=== PATIENT | male | born 1985 | race American Indian/Alaskan Native ===

== ENCOUNTER 2016-07-20 14:20 | Emergency (ER) | payer OTHER ==
[2016-07-20 20:45] VITALS: BP 141/89
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
== END 2016-07-21 00:14 | disposition home or self-care (01) ==
LOC: ED 14:20
DX: S39.012A Strain of muscle, fascia and tendon of lower back, initial encounter (principal); S16.1XXA Strain of muscle, fascia and tendon at neck level, initial encounter; V89.2XXA Person injured in unspecified motor-vehicle accident, traffic, initial encounter; Y92.488 Other paved roadways as the place of occurrence of the external cause; Y93.89 Activity, other specified; Y99.8 Other external cause status
CPT/HCPCS: 72125

== ENCOUNTER 2017-03-22 05:45 | Emergency (ER) | payer OTHER ==
[2017-03-22 06:56] LABS: Basophils % (Auto) 0.9 % (0.0-1.8); Eosinophils % (Auto) 4.6 % (0.0-4.3); Hematocrit 43.6 % (35.5-45.6); Mean Corpuscular HGB Conc 34 % (32-34); Mean Corpuscular Hemoglobin 32 pg (28-32); Mean Corpuscular Volume 94 fl (84-94); Platelet Count 185 K/mm3 (140-440); Red Blood Count 4.63 M/mm3 (3.65-5.03); Red Cell Distribution Width 13.1 % (13.2-15.2); White Blood Count 3.5 K/mm3 (4.5-11.0)
[2017-03-22 07:14] LABS: Alanine Aminotransferase 14 units/L (7-56); Albumin 4.4 g/dL (3.9-5); Albumin/Globulin Ratio 1.3 %; Alkaline Phosphatase 69 units/L (35-129); Anion Gap 17 mmol/L; Blood Urea Nitrogen 15 mg/dL (9-20); Calcium 9.5 mg/dL (8.4-10.2); Carbon Dioxide 26 mmol/L (22-30); Chloride 100.5 mmol/L (98-107); Glucose 89 mg/dL (75-100); Lipase 40 units/L (13-60); Potassium 3.9 mmol/L (3.6-5.0); Sodium 140 mmol/L (137-145); Total Protein 7.8 g/dL (6.3-8.2)
[2017-03-22 09:38] LABS: Bilirubin,Urine NEG (Negative); Blood,Urine NEG (Negative); Ketones,Urine NEG (Negative); Leukocyte Esterase,Urine NEG (Negative); Nitrite,Urine NEG (Negative); Protein,Urine <15 mg/dL mg/dL (Negative); Urobilinogen,Urine < 2.0 mg/dL (<2.0)
[2017-03-22] MEDS ORDERED: ZOFRAN IV ONE (10:20)
[2017-03-22] MEDS ORDERED: NACL 0.9% 1000 ML 1,000 ML IV ONE (10:20)
[2017-03-22] MEDS ORDERED: MORPHINE IV ONE (10:20)
--- NOTE | 2017-03-22 10:21 | Emergency Department Report ---
HPI - General Chief Complaint: Abdominal Pain Time Seen by Provider: 03/22/17 10:03 - HPI HPI: This is a 31-year-old male who presents to the emergency department with complaint of upper abdominal pain, mostly in the epigastrium, since about 10 PM last night. It is associated with some nausea and one episode of vomiting. He denies any dysuria, diarrhea, constipation, fever, back pain. He tried some ibuprofen for his pain without any relief. No recent travel or sick contacts at home. He does not have a primary care physician. He denies any past medical history. There are no known aggravating or alleviating factors. ED Past Medical Hx - Past Medical History Previous Medical History?: No - Surgical History Past Surgical History?: No - Social History Smoking Status: Light Tobacco Smoker Substance Use Type: Marijuana - Medications Home Medications: Home Medications Medication Instructions Recorded Confirmed Last Taken Type HYDROcodone/APAP 5-325 [[place] 1 each PO Q6HR PRN #20 tablet 06/23/16 Unknown Rx 5/325] Omeprazole 40 mg PO DAILY #30 capsule. 06/23/16 Unknown Rx Cyclobenzaprine [Flexeril] 10 mg PO TID PRN #20 tablet 07/21/16 Unknown Rx Ibuprofen [Motrin 600 MG tab] 600 mg PO Q8H PRN #30 tablet 07/21/16 Unknown Rx Famotidine [Pepcid] 20 mg PO BID #10 tablet 03/22/17 Unknown Rx Ondansetron [Zofran Odt] 4 mg PO Q8H PRN #10 tab.rapdis 03/22/17 Unknown Rx ED Review of Systems ROS: Stated complaint: ABD PAIN Other details as noted in HPI Comment: All other systems reviewed and negative Constitutional: denies: chills, fever Eyes: denies: eye pain, eye discharge, vision change ENT: denies: ear pain, throat pain Respiratory: denies: cough, shortness of breath, wheezing Cardiovascular: denies: chest pain, palpitations Gastrointestinal: abdominal pain, nausea, vomiting Genitourinary: denies: urgency, dysuria Musculoskeletal: denies: back pain, joint swelling, arthralgia Skin: denies: rash, lesions Neurological: denies: headache, weakness, paresthesias Physical Exam - Physical Exam Vital Signs: Vital Signs 03/22/17 06:22 Temperature 98.5 F Pulse Rate 63 Respiratory 18 Rate Blood Pressure 122/86 O2 Sat by Pulse 99 Oximetry Physical Exam: GENERAL: The patient is well-developed well-nourished. HENT: Normocephalic. Atraumatic. Patient has moist mucous membranes. EYES: Extraocular motions are intact. Pupils equal reactive to light bilaterally. NECK: Supple. Trachea is midline. CHEST/LUNGS: Clear to auscultation. There is no respiratory distress noted. HEART/CARDIOVASCULAR: Regular. Mild bradycardia. There is no gallop rub or murmur. ABDOMEN: Abdomen is soft. There is some right upper quadrant and epigastric tenderness to palpation. No guarding or rebound tenderness. No peritoneal signs. Patient has normal bowel sounds. There is no abdominal distention. SKIN: Skin is warm and dry. NEURO: The patient is awake, alert, and oriented. The patient is cooperative. The patient has no focal neurologic deficits. The patient has normal speech. MUSCULOSKELETAL: There is no tenderness or deformity. There is no limitation range of motion. There is no evidence of acute injury. ED Course Vital Signs 03/22/17 06:22 Temperature 98.5 F Pulse Rate 63 Respiratory 18 Rate Blood Pressure 122/86 O2 Sat by Pulse 99 Oximetry ED Medical Decision Making - Lab Data Result diagrams: 03/22/17 06:39 03/22/17 06:39 - Radiology Data Radiology results: report reviewed, image reviewed interpreted by me: Abdominal x-ray does not show any acute process. Nonspecific nonobstructive bowel gas. Upper abdominal ultrasound is a normal examination. - Medical Decision Making 31-year-old male presents to the emergency department with some upper abdominal pain, nausea and vomiting since last night. He was given a dose of pain medication and Zofran and upon reevaluation he is feeling improved. X-ray does not show any acute process. Upper abdominal ultrasound does not show any signs of cholelithiasis, pancreatitis, hepatitis or any acute process. Vital signs stable. His records. Discharged home to follow up with primary care and will return to the ER for any worsening of symptoms or any distress. - Differential Diagnosis gastritis, GERD, pancreatitis, cholecystitis, cholelithiasis Critical Care Time: No Critical care attestation.: If time is entered above; I have spent that time in minutes in the direct care of this critically ill patient, excluding procedure time. ED Disposition Clinical Impression: Abdominal pain Qualifiers: Abdominal location: epigastric Qualified Code(s): R10.13 - Epigastric pain Nausea & vomiting Qualifiers: Vomiting type: unspecified Vomiting Intractability: non-intractable Qualified Code(s): R11.2 - Nausea with vomiting, unspecified Disposition: TO HOME OR SELFCARE Is pt being admited?: No Condition: Stable Instructions: Abdominal Pain (ED) Additional Instructions: Please follow up with a primary care physician in the next few days. Return to the emergency Department with any worsening of your symptoms or any acute distress. Prescriptions: Famotidine [Pepcid] 20 mg PO BID #10 tablet Ondansetron [Zofran Odt] 4 mg PO Q8H PRN #10 tab.rapdis PRN Reason: Nausea Referrals: PRIMARY CARE, [Primary Care Provider] - 3-5 Days DENNIS AVILA MD [Staff Physician] - 3-5 Days SY[facility] US MD [Staff Physician] - 3-5 Days [facility] [Outside] - 3-5 Days Time of Disposition: 12:17
--- NOTE | 2017-03-22 10:46 | XRay Report ---
ABDOMEN RADIOGRAPHS INDICATION: Abdominal pain. COMPARISON: None similar. FINDINGS: Frontal abdominal radiographs demonstrate nonobstructive bowel gas pattern. No focal suspicious calcifications, pneumatosis or pneumoperitoneum. Ascending colon stool. Two elongated presumably ingested pills in the right lower quadrant. Small right hemipelvic phlebolith. Clear visualized lung bases. Unremarkable bones. CONCLUSION: No acute abdominal radiographic abnormality, as described. Thank you for the opportunity to participate in this patient's care.
--- NOTE | 2017-03-22 11:26 | Ultrasound Report ---
ULTRASOUND ABDOMEN LIMITED INDICATION: Upper abdominal pain. COMPARISON: 06/23/2016. FINDINGS: Right upper quadrant ultrasound again demonstrates normal liver. Gallbladder though suboptimally distended and assessed as patient had just eaten. Small, 3 mm echogenicity within the gallbladder though nonspecific for possible small polyp or floating debris/sludge as on image 27. No other definite gallstones, pericholecystic fluid or positive sonographic Sung's sign. Gallbladder wall thickness is 2.1 mm. Common bile duct is 2.4 mm. Pancreatic head and neck appear within normal limits, though body and tail obscured due to bowel gas. Normal imaged IVC and abdominal aorta. Nonhydronephrotic 12.1 x 4.9 x 5.3 cm right kidney with cortical thickness of 1.5 cm. Top normal/borderline renal cortical echogenicity. CONCLUSION: No acute significant right upper quadrant sonographic abnormality with a small gallbladder polyp or minimal debris and top normal renal cortical echogenicity noted, as described. Thank you for the opportunity to participate in this patient's care.
[2017-03-22 12:24] VITALS: BP 113/76
== END 2017-03-22 12:39 | disposition home or self-care (01) ==
LOC: ED 05:45
DX: R10.13 Epigastric pain (principal); R11.2 Nausea with vomiting, unspecified; F12.10 Cannabis abuse, uncomplicated; F17.200 Nicotine dependence, unspecified, uncomplicated
CPT/HCPCS: 36415; 74020; 76705; 80053; 81001; 83690; 85025; 96361; 96374; 96375; 99284; J2270; J2405; J7030

== ENCOUNTER 2017-04-17 23:00 | Emergency (ER) | payer OTHER ==
[2017-04-17 23:11] VITALS: BP 143/99
== END 2017-04-18 04:30 | disposition left against medical advice (07) ==
LOC: ED 23:00
DX: Z53.21 Procedure and treatment not carried out due to patient leaving prior to being seen by health care provider (principal)

== ENCOUNTER 2019-01-16 05:48 | Emergency (ER) | payer OTHER ==
[2019-01-16] MEDS ORDERED: ALUM-MAG HYDROX-SIMETH 200-200-20MG/5ML PO ONE (06:31)
[2019-01-16] MEDS ORDERED: PEPCID PO ONE (06:31)
[2019-01-16] MEDS ORDERED: LIDOCAINE VISCOUS 2% PO ONE (06:31)
[2019-01-16] MEDS ORDERED: ALUM-MAG HYDROX-SIMETH 200-200-20MG/5ML ONE (06:34)
[2019-01-16 06:52] LABS: Basophils % (Auto) 0.5 % (0.0-1.8); Eosinophils # (Auto) 0.1 K/mm3 (0.0-0.4); Eosinophils % (Auto) 3.4 % (0.0-4.3); Hematocrit 42.6 % (35.5-45.6); Hemoglobin 14.6 gm/dl (11.8-15.2); Lymphocytes # (Auto) 1.6 K/mm3 (1.2-5.4); Lymphocytes % (Auto) 35.8 % (13.4-35.0); Mean Corpuscular HGB Conc 34 % (32-34); Mean Corpuscular Volume 97 fl (84-94); Monocytes # (Auto) 0.4 K/mm3 (0.0-0.8); Monocytes % (Auto) 9.9 % (0.0-7.3); Platelet Count 203 K/mm3 (140-440); Red Blood Count 4.41 M/mm3 (3.65-5.03); Red Cell Distribution Width 13.1 % (13.2-15.2)
[2019-01-16 07:19] LABS: Alanine Aminotransferase 15 units/L (7-56); Albumin 3.8 g/dL (3.9-5); BUN/Creatinine Ratio 13; Blood Urea Nitrogen 17 mg/dL (9-20); Calcium 9.2 mg/dL (8.4-10.2); Hemolysis Index 8
[2019-01-16 07:21] LABS: Bilirubin,Urine NEG (Negative); Blood,Urine SM (Negative); Color,Urine Yellow (Yellow); Mucus,Urine FEW /HPF; Protein,Urine <15 mg/dL mg/dL (Negative); Urobilinogen,Urine < 2.0 mg/dL (<2.0)
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
[2019-01-16 07:32] LABS: Amphetamine Screen,Urine PRESUMPTIVE NEGATIVE; Benzodiazepines Screen,Urine PRESUMPTIVE NEGATIVE; Cannabinoid Screen,Urine PRESUMPTIVE NEGATIVE; Methadone Screen,Urine PRESUMPTIVE NEGATIVE; Opiate Screen,Urine PRESUMPTIVE NEGATIVE
[2019-01-16 07:45] LABS: Cocaine Screen,Urine PRESUMPTIVE POSITIVE
[2019-01-16 08:01] VITALS: BP 146/100
== END 2019-01-16 07:59 | disposition home or self-care (01) ==
LOC: ED 05:48
DX: K21.9 Gastro-esophageal reflux disease without esophagitis (principal); F17.200 Nicotine dependence, unspecified, uncomplicated; F14.10 Cocaine abuse, uncomplicated; F15.10 Other stimulant abuse, uncomplicated
CPT/HCPCS: 36415; 80053; 80307; 81001; 85025

== ENCOUNTER 2019-05-18 23:46 | Emergency (ER) | payer SELFPAY ==
[2019-05-19 00:24] LABS: Basophils % (Auto) 0.5 % (0.0-1.8); Eosinophils # (Auto) 0.1 K/mm3 (0.0-0.4); Eosinophils % (Auto) 1.1 % (0.0-4.3); Hematocrit 39.6 % (35.5-45.6); Hemoglobin 13.8 gm/dl (11.8-15.2); Lymphocytes # (Auto) 1.7 K/mm3 (1.2-5.4); Lymphocytes % (Auto) 23.1 % (13.4-35.0); Mean Corpuscular HGB Conc 35 % (32-34); Mean Corpuscular Volume 97 fl (84-94); Monocytes # (Auto) 0.7 K/mm3 (0.0-0.8); Monocytes % (Auto) 9.4 % (0.0-7.3); Platelet Count 241 K/mm3 (140-440); Red Cell Distribution Width 13.1 % (13.2-15.2)
[2019-05-19 00:40] LABS: BUN/Creatinine Ratio 8; Blood Urea Nitrogen 9 mg/dL (9-20); Calcium 9.6 mg/dL (8.4-10.2); Hemolysis Index 7
[2019-05-19 01:54] LABS: Bacteria,Urine 1+ /HPF (Negative); Bilirubin,Urine NEG (Negative); Blood,Urine MOD (Negative); Color,Urine Yellow (Yellow); Protein,Urine <15 mg/dL mg/dL (Negative)
[2019-05-19 01:59] LABS: Amphetamine Screen,Urine PRESUMPTIVE NEGATIVE; Benzodiazepines Screen,Urine PRESUMPTIVE NEGATIVE; Methadone Screen,Urine PRESUMPTIVE NEGATIVE; Opiate Screen,Urine PRESUMPTIVE NEGATIVE
[2019-05-19] MEDS ORDERED: IBUPROFEN 800 MG TAB PO ONE (02:38)
[2019-05-19 02:51] LABS: Cannabinoid Screen,Urine PRESUMPTIVE POSITIVE; Cocaine Screen,Urine PRESUMPTIVE POSITIVE
--- NOTE | 2019-05-19 03:10 | Emergency Department Report ---
ED Psych HPI - General Chief Complaint: Psych Stated Complaint: NECK AND SPINE PAIN Time Seen by Provider: 05/19/19 01:43 Source: patient Mode of arrival: Ambulatory Limitations: No Limitations - History of Present Illness Initial Comments: 34-year-old male with a past medical history of hypertension, depression, anxiety, polysubstance abuse presents to the hospital complaining of suicidal thoughts. He is experiencing hallucinations. Patient is also having thoughts of hurting other people. He is crack prior to arrival. He complains of some pain to the left side of his neck. No trauma reported. - Related Data Previous Rx's Medication Instructions Recorded Last Taken Type HYDROcodone/APAP 5-325 [[place] 1 each PO Q6HR PRN #20 tablet 06/23/16 Unknown Rx 5/325] Omeprazole 40 mg PO DAILY #30 capsule. 06/23/16 Unknown Rx Cyclobenzaprine [Flexeril] 10 mg PO TID PRN #20 tablet 07/21/16 Unknown Rx Ibuprofen [Motrin 600 MG tab] 600 mg PO Q8H PRN #30 tablet 07/21/16 Unknown Rx Famotidine [Pepcid] 20 mg PO BID #10 tablet 03/22/17 Unknown Rx Ondansetron [Zofran Odt] 4 mg PO Q8H PRN #10 tab.rapdis 03/22/17 Unknown Rx Allergies Allergy/AdvReac Type Severity Reaction Status Date / Time No Known Allergies Allergy Verified 05/18/19 23:49 ED Review of Systems ROS: Stated complaint: NECK AND SPINE PAIN Other details as noted in HPI Comment: All other systems reviewed and negative ED Past Medical Hx - Past Medical History Hx Hypertension: Yes Hx GERD: Yes Hx Psychiatric Treatment: Yes (depression, anxiety, polysubstance abuse) - Surgical History Past Surgical History?: No - Social History Smoking Status: Current Every Day Smoker Substance Use Type: Alcohol, Cocaine, Marijuana - Medications Home Medications: Home Medications Medication Instructions Recorded Confirmed Last Taken Type HYDROcodone/APAP 5-325 [[place] 1 each PO Q6HR PRN #20 tablet 06/23/16 Unknown Rx 5/325] Omeprazole 40 mg PO DAILY #30 capsule. 06/23/16 Unknown Rx Cyclobenzaprine [Flexeril] 10 mg PO TID PRN #20 tablet 07/21/16 Unknown Rx Ibuprofen [Motrin 600 MG tab] 600 mg PO Q8H PRN #30 tablet 07/21/16 Unknown Rx Famotidine [Pepcid] 20 mg PO BID #10 tablet 03/22/17 Unknown Rx Ondansetron [Zofran Odt] 4 mg PO Q8H PRN #10 tab.rapdis 03/22/17 Unknown Rx ED Physical Exam - General Limitations: No Limitations - Other Other exam information: General: No acute distress Head: Atraumatic Eyes: normal appearance ENT: Moist mucous membranes Neck: Normal appearance, no midline tenderness, tenderness along the left trapezius and sternocleidomastoid Chest: Clear to auscultation bilaterally CV: mild tach, reg rhythm Abdomen: Soft, normal bowel sounds, nontender, nondistended, no rebound or guarding Back: Normal inspection Extremity: Normal inspection infection, full range of motion Neuro: Alert O x 3, no facial asymmetry, speech clear, no gross motor sensory deficit Psych: poor eye contact, cooperative Skin: No rash ED Course Vital Signs 05/18/19 05/19/19 05/19/19 23:50 01:14 01:49 Temperature 98.3 F 98.1 F Pulse Rate 106 H 100 H Respiratory 18 18 18 Rate Blood Pressure 141/97 Blood Pressure 119/62 [Left] O2 Sat by Pulse 96 100 Oximetry ED Medical Decision Making - Lab Data Result diagrams: 05/18/19 23:59 05/18/19 23:59 Lab Results 05/18/19 05/18/19 05/18/19 Range/Units 23:59 23:59 23:59 WBC (4.5-11.0) K/mm3 RBC (3.65-5.03) M/mm3 Hgb (11.8-15.2) gm/dl Hct (35.5-45.6) % MCV (84-94) fl MCH (28-32) pg MCHC (32-34) % RDW (13.2-15.2) % Plt Count (140-440) K/mm3 Lymph % (Auto) (13.4-35.0) % [place] % (Auto) (0.0-7.3) % Eos % (Auto) (0.0-4.3) % Baso % (Auto) (0.0-1.8) % Lymph # (1.2-5.4) K/mm3 [place] # (0.0-0.8) K/mm3 Eos # (0.0-0.4) K/mm3 Baso # (0.0-0.1) K/mm3 Seg Neutrophils % (40.0-70.0) % Seg Neutrophils # (1.8-7.7) K/mm3 Sodium 139 (137-145) mmol/L Potassium 4.4 (3.6-5.0) mmol/L Chloride 99.4 (98-107) mmol/L Carbon Dioxide 28 (22-30) mmol/L Anion Gap 16 mmol/L BUN 9 (9-20) mg/dL Creatinine 1.2 (0.8-1.5) mg/dL Estimated GFR > 60 ml/min BUN/Creatinine Ratio 8 % Glucose 87 (75-100) mg/dL Calcium 9.6 (8.4-10.2) mg/dL Urine Color (Yellow) Urine Turbidity (Clear) Urine pH (5.0-7.0) Ur Specific Lilly (1.003-1.030) Urine Protein (Negative) mg/dL Urine Glucose (UA) (Negative) mg/dL Urine Ketones (Negative) mg/dL Urine Blood (Negative) Urine Nitrite (Negative) Urine Bilirubin (Negative) Urine Urobilinogen (<2.0) mg/dL Ur Leukocyte Esterase (Negative) Urine WBC (Auto) (0.0-6.0) /HPF Urine RBC (Auto) (0.0-6.0) /HPF U Epithel Cells (Auto) (0-13.0) /HPF Urine Bacteria (Auto) (Negative) /HPF Salicylates < 0.3 L (2.8-20.0) mg/dL Urine Opiates Screen Urine Methadone Screen Acetaminophen < 5.0 L (10.0-30.0) ug/mL Ur Barbiturates Screen Ur Phencyclidine Scrn Ur Amphetamines Screen U Benzodiazepines Scrn Urine Cocaine Screen U Marijuana (THC) Screen Drugs of Abuse Note Plasma/Serum Alcohol (0-0.07) % 05/18/19 05/18/19 05/19/19 Range/Units 23:59 23:59 01:38 WBC 7.5 (4.5-11.0) K/mm3 RBC 4.10 (3.65-5.03) M/mm3 Hgb 13.8 (11.8-15.2) gm/dl Hct 39.6 (35.5-45.6) % MCV 97 H (84-94) fl MCH 34 H (28-32) pg MCHC 35 H (32-34) % RDW 13.1 L (13.2-15.2) % Plt Count 241 (140-440) K/mm3 Lymph % (Auto) 23.1 (13.4-35.0) % [place] % (Auto) 9.4 H (0.0-7.3) % Eos % (Auto) 1.1 (0.0-4.3) % Baso % (Auto) 0.5 (0.0-1.8) % Lymph # 1.7 (1.2-5.4) K/mm3 [place] # 0.7 (0.0-0.8) K/mm3 Eos # 0.1 (0.0-0.4) K/mm3 Baso # 0.0 (0.0-0.1) K/mm3 Seg Neutrophils % 65.9 (40.0-70.0) % Seg Neutrophils # 5.0 (1.8-7.7) K/mm3 Sodium (137-145) mmol/L Potassium (3.6-5.0) mmol/L Chloride (98-107) mmol/L Carbon Dioxide (22-30) mmol/L Anion Gap mmol/L BUN (9-20) mg/dL Creatinine (0.8-1.5) mg/dL Estimated GFR ml/min BUN/Creatinine Ratio % Glucose (75-100) mg/dL Calcium (8.4-10.2) mg/dL Urine Color Yellow (Yellow) Urine Turbidity Clear (Clear) Urine pH 7.0 (5.0-7.0) Ur Specific Lilly 1.012 (1.003-1.030) Urine Protein <15 mg/dl (Negative) mg/dL Urine Glucose (UA) Neg (Negative) mg/dL Urine Ketones Neg (Negative) mg/dL Urine Blood Mod (Negative) Urine Nitrite Neg (Negative) Urine Bilirubin Neg (Negative) Urine Urobilinogen 4.0 (<2.0) mg/dL Ur Leukocyte Esterase Sm (Negative) Urine WBC (Auto) 5.0 (0.0-6.0) /HPF Urine RBC (Auto) 9.0 (0.0-6.0) /HPF U Epithel Cells (Auto) < 1.0 (0-13.0) /HPF Urine Bacteria (Auto) 1+ (Negative) /HPF Salicylates (2.8-20.0) mg/dL Urine Opiates Screen Urine Methadone Screen Acetaminophen (10.0-30.0) ug/mL Ur Barbiturates Screen Ur Phencyclidine Scrn Ur Amphetamines Screen U Benzodiazepines Scrn Urine Cocaine Screen U Marijuana (THC) Screen Drugs of Abuse Note Plasma/Serum Alcohol < 0.01 (0-0.07) % 05/19/19 Range/Units 01:38 WBC (4.5-11.0) K/mm3 RBC (3.65-5.03) M/mm3 Hgb (11.8-15.2) gm/dl Hct (35.5-45.6) % MCV (84-94) fl MCH (28-32) pg MCHC (32-34) % RDW (13.2-15.2) % Plt Count (140-440) K/mm3 Lymph % (Auto) (13.4-35.0) % [place] % (Auto) (0.0-7.3) % Eos % (Auto) (0.0-4.3) % Baso % (Auto) (0.0-1.8) % Lymph # (1.2-5.4) K/mm3 [place] # (0.0-0.8) K/mm3 Eos # (0.0-0.4) K/mm3 Baso # (0.0-0.1) K/mm3 Seg Neutrophils % (40.0-70.0) % Seg Neutrophils # (1.8-7.7) K/mm3 Sodium (137-145) mmol/L Potassium (3.6-5.0) mmol/L Chloride (98-107) mmol/L Carbon Dioxide (22-30) mmol/L Anion Gap mmol/L BUN (9-20) mg/dL Creatinine (0.8-1.5) mg/dL Estimated GFR ml/min BUN/Creatinine Ratio % Glucose (75-100) mg/dL Calcium (8.4-10.2) mg/dL Urine Color (Yellow) Urine Turbidity (Clear) Urine pH (5.0-7.0) Ur Specific Lilly (1.003-1.030) Urine Protein (Negative) mg/dL Urine Glucose (UA) (Negative) mg/dL Urine Ketones (Negative) mg/dL Urine Blood (Negative) Urine Nitrite (Negative) Urine Bilirubin (Negative) Urine Urobilinogen (<2.0) mg/dL Ur Leukocyte Esterase (Negative) Urine WBC (Auto) (0.0-6.0) /HPF Urine RBC (Auto) (0.0-6.0) /HPF U Epithel Cells (Auto) (0-13.0) /HPF Urine Bacteria (Auto) (Negative) /HPF Salicylates (2.8-20.0) mg/dL Urine Opiates Screen Presumptive negative Urine Methadone Screen Presumptive negative Acetaminophen (10.0-30.0) ug/mL Ur Barbiturates Screen Presumptive negative Ur Phencyclidine Scrn Presumptive negative Ur Amphetamines Screen Presumptive negative U Benzodiazepines Scrn Presumptive negative Urine Cocaine Screen Presumptive positive U Marijuana (THC) Screen Presumptive positive Drugs of Abuse Note Disclamer Plasma/Serum Alcohol (0-0.07) % - Medical Decision Making pt is with homicidal suicidal ideation as well as psychosis. Positive crack and marijuana use. Patient medically clear for psychiatric admission. 1013 and transfer forms have been signed. - Differential Diagnosis si, hi, psychosis,drug abuse Critical Care Time: No Critical care attestation.: If time is entered above; I have spent that time in minutes in the direct care of this critically ill patient, excluding procedure time. ED Disposition Clinical Impression: Suicidal ideation, Crack cocaine use, Psychosis, Homicidal ideation, Medical clearance for psychiatric admission Disposition: [id number]/TX-[id number] PSY HOSP/PSY UNIT Is pt being admited?: No Condition: Stable Time of Disposition: 03:16
[2019-05-19] MEDS ORDERED: traZODone 100 MG TAB PO SCH (22:00)
[2019-05-20] MEDS ORDERED: SERTRALINE 25 MG TAB PO SCH (10:00)
--- NOTE | 2019-05-20 10:22 | Consultation ---
History of Present Illness - Reason for Consult Consult date: 05/20/19 Reason for consult: Mental Health Evaluation Requesting physician: HUMPHREY CR - Chief Complaint Chief complaint: I need my CDL" - History of Present Psychiatric Illness 34 y.o. male who presented to the ER for SI/HI's. Today the patient was calm and cooperative during the assessment. 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 He stated that he has a hx of depression with a suicide attempt in the past. He stated that he haven't had his psy medication in several days. He rate his depression 7/10, with 10 being the worse. He endorsed SI's, but would not confirm or deny a suicide plan when asked. He denies HI's and AVH's. He stated that his sleep is always "off." He denies alcohol consumption (etoh) and frequent recreational drug use. Medications and Allergies Allergies Allergy/AdvReac Type Severity Reaction Status Date / Time No Known Allergies Allergy Verified 05/18/19 23:49 Home Medications Medication Instructions Recorded Confirmed Last Taken Type Sertraline [Zoloft] 25 mg PO QDAY 05/19/19 05/19/19 Unknown History traZODone [Desyrel] 100 mg PO QHS 05/19/19 05/19/19 Unknown History Active Meds: Active Medications Sertraline HCl (Zoloft) 25 mg PO QDAY [facility] Trazodone HCl (Desyrel) 100 mg PO QHS [facility] Last Admin: 05/19/19 22:52 Dose: 100 mg Documented by: Past psychiatric history - Past Medical History Past Medical History: No medical history Past Surgical History: No surgical history - past Psychiatric treatment and history psychiatric treatment history: Several inpatient psy services per the patient. Denies a fam psy hx. - Social History Social history: other (Homeless) Mental Status Exam - Vital signs Last Vital Signs Temp 98.0 F 05/20/19 07:00 Pulse 116 H 05/20/19 07:00 Resp 18 05/20/19 07:00 BP 124/66 05/20/19 07:00 Pulse Ox 97 05/20/19 07:00 - Exam Narrative exam: MSE: Appearance: in hospital attire Behavior: poor eye contact Speech: regular rate with loud tone Mood:: "down" Affect: flat Thought Process: circumstantial Thought Content: denies HI's and AVH's Motor Activity: ambulatory Cognition: A/O x3 Insight: variable Judgment: poor Results Result Diagrams: 05/18/19 23:59 05/18/19 23:59 All other labs normal. Assessment and Plan Assessment and plan: Impression: MDD. Substance Use DO (cocaine). Cannabis Use DO. Today the patient was calm and cooperative during the assessment. DDx: Bipolar DO, Substance Induced Mood DO Recommendation/Plan: Continue 1013 and start Zoloft 50 mg PO daily for depression and Melatonin 5 mg PO HS for sleep. Discussed possible suicidality/medication induced dudley with the patient reference Zoloft, he verbalized understanding. Dispo: The patient was referred to inpatient psy services. Staffed with Dr Isadora Fabian.
[2019-05-20] MEDS: SERTRALINE 50 MG TAB PO SCH (10:45)
[2019-05-20] MEDS: MELATONIN 5 MG TAB PO SCH (22:59)
--- NOTE | 2019-05-21 11:30 | Progress Note ---
Subjective - Reason for Consult Consult date: 05/21/19 Reason for consult: Psychiatry Follow-up - Chief Complaint Chief complaint: "I don't know what to do" 34 y.o. male who presented to the ER for SI/HI's. Today the patient was calm and cooperative during the assessment. He stated that his SI's are still active, but he would not confirm or deny a suicide plan. He stated, "If I had a job, I would be okay." He denies HI's and AVH's. He denies any side effects from his medications. Mental Status Exam - Vital signs Last Vital Signs Temp 97.4 F L 05/21/19 10:50 Pulse 86 05/21/19 10:50 Resp 18 05/21/19 10:50 BP 117/76 05/21/19 10:50 Pulse Ox 99 05/21/19 10:50 - Exam Narrative exam: MSE: Appearance: calm, cooperative Behavior: poor eye contact Speech: regular rate with loud tone Mood:: "okay" Affect: flat Thought Process: circumstantial Thought Content: denies HI's and AVH's Motor Activity: ambulatory Cognition: A/O x3 Insight: variable Judgment: poor Assessment and Plan Impression: MDD. Substance Use DO (cocaine). Cannabis Use DO. Today the patient was calm and cooperative during the assessment. DDx: Bipolar DO, Substance Induced Mood DO Recommendation/Plan: Continue 1013, Zoloft 50 mg PO daily for depression, and Melatonin 5 mg PO HS for sleep. Discussed possible suicidality/medication induced dudley with the patient reference Zoloft, he verbalized understanding. Dispo: The patient was referred to inpatient psy services. Will staff with Dr Isadora Fabian.
[2019-05-21] MEDS: SERTRALINE 50 MG TAB PO SCH (11:41)
[2019-05-22] MEDS: MELATONIN 5 MG TAB PO SCH (00:14)
[2019-05-22 08:01] VITALS: BP 118/78
[2019-05-22] MEDS: SERTRALINE 50 MG TAB PO SCH (10:18)
--- NOTE | 2019-05-22 10:46 | Progress Note ---
Subjective - Reason for Consult Consult date: 05/22/19 Reason for consult: Psychiatry Follow-up - Chief Complaint Chief complaint: "I don't know what to do" 34 y.o. male who presented to the ER for SI/HI's. Today the patient was calm and cooperative during the assessment. He stated he has a chance to get a job when discharged. He stated that he have been reflecting on his life and want to live. He stated that he have to stop with the"drug use." He stated that he is willing to follow up with outpatient psy/rehab service when discharged. He denies SI/HI's and AVH's. He denies any side effects from his medication. Mental Status Exam - Vital signs Last Vital Signs Temp 98.2 F 05/22/19 07:00 Pulse 64 05/22/19 07:00 Resp 18 05/22/19 07:00 BP 118/78 05/22/19 07:00 Pulse Ox 97 05/22/19 07:00 - Exam Narrative exam: MSE: Appearance: calm, cooperative Behavior: regular eye contact Speech: regular rate with loud tone Mood:: "better" Affect: congruent to mood Thought Process: linear Thought Content: denies SI/HI's and AVH's Motor Activity: ambulatory Cognition: A/O x3 Insight: fair Judgment: fair Assessment and Plan Impression: MDD. Substance Use DO (cocaine). Cannabis Use DO. Today the patient was calm and cooperative during the assessment. The patient is no threat to self. DDx: Bipolar DO, Substance Induced Mood DO Recommendation/Plan: Rescind 1013. Continue Zoloft 50 mg PO daily for depre ssion. Discussed possible suicidality/medication induced dudley with the patient reference Zoloft, he verbalized understanding. Discussed the importance to abstain from recreational drug use with the patient, he verbalized understanding. Dispo: The patient can follow up with [facility] for outpatient psy services. Staffed with Dr Isadora Fabian.
== END 2019-05-22 14:42 | disposition home or self-care (01) ==
LOC: EEVIPCON 23:46 → ED 23:46
DX: F29 Unspecified psychosis not due to a substance or known physiological condition (principal); F32.9 Major depressive disorder, single episode, unspecified; F14.10 Cocaine abuse, uncomplicated; F41.9 Anxiety disorder, unspecified; I10 Essential (primary) hypertension; F17.200 Nicotine dependence, unspecified, uncomplicated; F12.10 Cannabis abuse, uncomplicated
CPT/HCPCS: 36415; 80048; 80307; 80320; 81001; 85025; G0480